=== PATIENT | female | born 1995 | race Two or more races ===

== ENCOUNTER 2024-12-07 17:08 | Inpatient (IN) | payer MEDICAID, SELFPAY ==
[2024-12-07 17:09] VITALS: BMI 32.5
[2024-12-07 17:44] VITALS: BP 120/70; PULSE 117; RESP 18; TEMP 36.9; O2SAT 98
--- NOTE | 2024-12-07 17:59 | XR_ITS ---
Examination: PA lateral chest 2 views Technique: Upright PA lateral chest 2 views Date and time: December 07, 2024, 1818 hrs. Indications: Vomiting chest pain beginning 2 days ago. Findings: Normal heart size. No aspiration pneumonia. Lungs are clear. Osseous structures are intact. Impression: No active disease.
--- NOTE | 2024-12-07 18:00 | PD.EDRME ---
Rapid Medical Screening Exam RME Arrival date/time: 12/07/24 17:08 29-year-old female insulin-dependent diabetic presents to the emergency department today for complaints of elevated blood sugar nausea and vomiting since yesterday Chief Complaint: Flu Like Symptoms Vital signs: Vital Signs Temperature 98.5 F 12/07/24 17:44 Pulse Rate 117 H 12/07/24 17:44 Respiratory Rate 18 12/07/24 17:44 Blood Pressure 120/70 12/07/24 17:44 Pulse Oximetry (%) 98 12/07/24 17:44 Oxygen Delivery Method Room Air 12/07/24 17:44
[2024-12-07 18:34] LABS: Collection Type, Urine Clean Catch
[2024-12-07 18:46] LABS: Bilirubin,Urine Negative (Negative); Blood,Urine 2+ (Negative); Clarity,Urine Clear (Clear/Hazy); Color,Urine Lt-Yellow (Lt Yel-Yel); Culture Indicated,Urine Not Indicated; Glucose, Urine 4+ (Negative); Hyaline Casts,Urine 1 /hpf (0-1); Ketones,Urine 4+ (Negative); Leukocyte Esterase,Urine Negative (Negative); Nitrite,Urine Negative (Negative); PH,Urine 5.5 (5.0-7.0); Protein,Urine 1+ (Neg - Trace); RBC,Urine 5 /hpf (0-3); Specific Gravity,Urine 1.020 (1.001-1.035); Squamous Epithelial Cell,Urine 1 /hpf (0-5); Urobilinogen,Urine Negative mg/dL (0.0-1.0); WBC,Urine 2 /hpf (0-5)
[2024-12-07 18:47] LABS: HCG Qualitative,Urine Negative
[2024-12-07 19:02] LABS: Base Excess, Venous -14 (-3-3); O2 Saturation, Venous 86 % (96-97); PCO2, Venous 28 mmHg (36-56); PO2, Venous 52 mmHg (15-58); pH, Venous 7.23 (7.33-7.66)
[2024-12-07 19:03] LABS: Basophils # (Auto) 0.1 Thou/mm3 (0.0-0.2); Basophils % (Auto) 0 % (0-2.5); Eosinophils # (Auto) 0.0 Thou/mm3 (0.0-0.5); Eosinophils % (Auto) 0 % (0-10); Hematocrit 46.5 % (36.0-46.0); Hemoglobin 14.9 g/dL (12.0-16.0); Immature Granulocytes Auto 0.19 Thou/mm3 (0.00-0.00); Lymphocytes # (Auto) 1.7 Thou/mm3 (1.0-4.8); Lymphocytes % (Auto) 7 % (10-50); Mean Corpuscular HGB Conc 32.0 g/dl (31.0-37.0); Mean Corpuscular Hemoglobin 31.7 pg (25.0-35.0); Mean Corpuscular Volume 99 fL (80-100); Monocytes # (Auto) 1.1 Thou/mm3 (0.0-0.8); Monocytes % (Auto) 4 % (0-12); Neutrophils # (Auto) 21.1 Thou/mm3 (1.8-7.7); Neutrophils % (Auto) 87 % (37-80); Nucleated Red Blood Cell # 0.00 Thou/mm3 (0.00-0.00); Nucleated Red Blood Cell % 0 /100 WBC (0); Platelet Count 309 Thou/mm3 (140-440); RDW Standard Deviation 44.8 fL (36.4-46.3); Red Blood Count 4.70 Miln/mm3 (4.00-5.20); White Blood Count 24.2 Thou/mm3 (3.6-11.0)
[2024-12-07 19:04] LABS: Glucose Estimated Average 143 mg/dL (80-131); Hemoglobin A1C 6.6 % Hgb (4.8-6.0)
[2024-12-07 19:05] LABS: Beta Hydroxybutyrate 2.9 mmol/L (<0.6)
[2024-12-07 19:14] LABS: Alanine Aminotransferase 19 U/L (10-49); Albumin, Serum 5.2 gm/dL (3.5-5.0); Albumin/Globulin Ratio 2.2 (1.2-2.2); Alkaline Phosphatase 137 U/L (46-116); Anion Gap 20 (7-16); Aspartate Amino Transferase 20 U/L (0-34); BUN/Creatinine Ratio 9 Ratio (12-20); Bilirubin,Total 0.4 mg/dL (0.3-1.2); Blood Urea Nitrogen 10 mg/dL (9-23); Calcium 10.5 mg/dL (8.3-10.6); Calcium (Corrected) 10.5 mg/dL (8.5-10.1); Chloride 105 mMol/L (98-107); Creatinine (Component) 1.1 mg/dL (0.6-1.3); Estimated Creatinine Clearance 64.1 mL/min (>60); Globulin 2.4 gm/dL (2.3-3.5); Glucose 234 mg/dL (74-106); Lipase 21 U/L (12-53); Osmolality,Calculated 282 (275-295); Potassium 4.4 mMol/L (3.4-5.1); Sodium 138 mMol/L (136-145); Total Protein 7.6 gm/dL (5.7-8.2); eGFR > 60 See Note
[2024-12-07 19:21] LABS: Carbon Dioxide 13.1 mMol/L (20.0-31.0)
--- NOTE | 2024-12-07 19:36 | EDNOTE_ITS ---
Upper Respiratory Inf. RME/HPI General Chief Complaint: Flu Like Symptoms Stated Complaint: VOMITING/FATIGUE/FREQ BM x 2 DAYS Time Seen by Provider: 12/07/24 19:34 Arrival date/time: 12/07/24 17:08 RME / HPI RME / HPI Narrative: 12/07/24 17:08 29-year-old female insulin-dependent diabetic presents to the emergency department today for complaints of elevated blood sugar nausea and vomiting since yesterday ----- See [facility] for Dr. Ortega's HPI documentation. Related Data Home Medications ?Medication ?Instructions ?Recorded ?Confirmed apremilast 30 mg tablet (Otezla) 30 mg PO PRN PRN jeaneth kout 12/08/24 12/08/24 blood-glucose sensor (Dexcom G6 12/08/24 12/08/24 Sensor device) blood-glucose transmitter (Dexcom 12/08/24 12/08/24 G6 Transmitter device) insulin glargine 100 unit/mL (3 13 unit subcut DAILY 0 12/08/24 12/08/24 mL) subcutaneous pen (Basaglar KwikPen U-100 Insulin) insulin lispro 100 unit/mL 1 sliding scale dose subcut AC 12/08/24 12/08/24 subcutaneous pen (Admelog SoloStar U-100 Insulin lispro) insulin pump cart,auto,BT,G6/7 12/08/24 12/08/24 (Omnipod 5 G6-G7 Pods (Gen 5) subcutaneous cartridge) levothyroxine 150 mcg tablet 150 mcg PO DAILY 12/08/24 12/08/24 norgestimate 0.25 mg-ethinyl 1 tab PO DAILY 12/08/24 0 12/08/24 estradiol 0.035 mg tablet (Radha) Allergies Allergy/AdvReac Type Severity Reaction Status Date / Time No Known Allergies Allergy Verified 12/07/24 17:11 Review of Systems Review of Systems Systems Reviewed: All systems reviewed, normal except as documented Past Medical History Past Medical History CARDIAC: Negative Cardiac Disorders or Congestive Heart Failure RESPIRATORY: Negative Chronic Obstructive Pulmonary Disease (COPD) or Asthma GENITOURINARY: Negative Renal Disease ENDOCRINE: Positive Diabetes Mellitus Type 2; Negative Diabetes Mellitus Type 1 HEMATOLOGIC: Negative Sickle Cell Disease Social History SMOKING STATUS: Never smoker ED Exam Narrative Physical exam: See [facility] for Dr. Ortega's physical exam documentation. Course Quality Measures none Orders Category Date Time Status Bedside COVID-19 Antigen Test NOW Care 12/07/24 17:59 Completed Bedside Influenza A&B Antigen Test NOW Care 12/07/24 17:59 Completed Saline [Insert IV] NOW Care 12/07/24 19:35 Completed XR chest 2V Stat Exams 12/07/24 17:59 Completed A1C [Glycohemoglobin w (eAG)] Stat Lab 12/07/24 18:30 Completed Amylase Stat Lab 12/07/24 18:30 Completed Beta Hydroxybutyrate Stat Lab 12/07/24 18:30 Completed CBC Stat Lab 12/07/24 18:30 Completed Comprehensive Metabolic Panel Stat Lab 12/07/24 18:30 Completed HCG Qualitative,Urine Stat Lab 12/07/24 18:21 Completed Lipase Stat Lab 12/07/24 18:30 Completed UA, C/S IF [Urinalysis, C/S if Indicated] Stat Lab 12/07/24 18:21 Completed VBG [Venous Blood Gas] Stat Lab 12/07/24 18:30 Completed Insulin Reg 100 Units/100 ml [Myxredlin] Med 12/07/24 19:36 Discontinued 100 unit in 100 ml IV 0.1 unit/kg/hr Ondansetron Inj [Zofran Inj] Med 12/07/24 19:35 Discontinued 4 mg IVP X1 ONE Sodium Chloride 0.9% 1000 ml [Ns] 1,000 ml Med 12/07/24 19:35 Discontinued IV 999 mls/hr Vital Signs Vital signs: Vital Signs Temperature 98.5 F 12/07/24 17:44 Pulse Rate 117 H 12/07/24 17:44 Respiratory Rate 18 12/07/24 17:44 Blood Pressure 120/70 12/07/24 17:44 Pulse Oximetry (%) 98 12/07/24 17:44 Oxygen Delivery Method Room Air 12/07/24 17:44 Upper Respiratory Infection MDM Narrative MDM Narrative:: This section includes all my notes and documentations, including HPI, PE, and ED course. Devaughn Ortega MD HPI: 29yo female with DM here with nausea, vomiting, and elevated blood sugar for about 24 hours. And fatigue and malaise and abdominal discomfort. No other complaints reported. ROS: All negative except as documented in HPI. Physical Exam: General: Alert and oriented. Appearance of malaise noted. Eyes: Conjunctivae and lids clear. ENT: No nasal congestion. Neck: Supple. Heart: RRR. Lungs: No respiratory distress. Good air movement. No rhonchi, wheezing, rales. Abdomen: Soft and nontender. Normal bowel sounds. No distension. No rebound or guarding. Skin: Warm and dry. Neuro: Alert and oriented X 3. I reviewed all diagnostic test results. My interpretation of the chest x-ray is NAD. Blood tests remarkable for WBC 24.2, Carbon Dioxide 13.1, Anion Gap 20, Glucose 234, Beta Hydroxybutyrate 2.9. VCG remarkable for pH 7.23, pCO2 28. UA remarkable for 4+ glucose and 4+ ketones. At this point, diagnoses include: DKA Treatment here included: IV fluid Zofran Insulin drip I discussed the case with our ICU team. About the presentation and exam and diagnostics and treatments here. And need of further care in the hospital. Will accept the patient. Devaughn Ortega MD Patient data External records reviewed:: [facility] previous records (Per chart review, patient has no relevant previous ED visits.) Clinical information provided by:: patient Social determinants that could affect healthcare access:: none Patient has the following chronic illnesses:: DM How is presenting disease/condition affected by chronic disease/condition?: exacerbated by Evaluation data The following diagnostics were reviewed and interpreted by me:: lab results and radiology exam(s) Lab and/or radiology exams considered but not ordered:: none Interpretation Summary: I reviewed all diagnostic test results. My interpretation of the chest x-ray is NAD. Blood tests remarkable for WBC 24.2, Carbon Dioxide 13.1, Anion Gap 20, Glucose 234, Beta Hydroxybutyrate 2.9. VCG remarkable for pH 7.23, pCO2 28. UA remarkable for 4+ glucose and 4+ ketones. Medications / Prescriptions Medications or Prescriptions considered but not ordered:: none Medication administrations:: Medication Administration History Discontinued Medications Acetaminophen (Acetaminophen 325 Mg Tablet) 650 mg PO Q6H PRN PRN Reason: Fever >101.5 Stop: 01/06/25 20:45 Dextrose (Dextrose 50%-Water Inj 50 Ml Syringe) 25 ml IV PRNMRX1 PRN PRN Reason: Blood Sugar - Low Dextrose (Dextrose 50%-Water Inj 50 Ml Syringe) 25 ml IV Q15MIN PRN PRN Reason: BG 50-70 responsive npo pt Stop: 01/07/25 05:59 Dextrose (Dextrose 50%-Water Inj 50 Ml Syringe) 50 ml IV Q15MIN PRN PRN Reason: BG <50 OR BG <70 & pt unresponsive Stop: 01/07/25 05:59 Glucagon (Glucagon Inj 1 Mg Vial) 1 mg IM Q15MIN PRN PRN Reason: BG <70, and no IV access Heparin Sodium (Porcine) (Heparin Sod Inj 5000 Unit/Ml Vial) 5,000 unit SC Q8HR BASSAM Stop: 12/21/24 21:59 Last Admin: 12/09/24 05:31 Dose: 5,000 unit Documented By: YUE Co-signed By: Admin: 12/08/24 21:18 Dose: 5,000 unit Documented By: YUE Co-signed By: Admin: 12/08/24 14:21 Dose: 5,000 unit Documented By: EMERY Co-signed By: sharon Admin: 12/08/24 05:15 Dose: 5,000 unit Documented By: OZZIE Co-signed By: MAE Admin: 12/07/24 22:35 Dose: 5,000 unit Documented By: AKILA Co-signed By: TOMAS Sodium Chloride (Ns) 1,000 mls @ 999 mls/hr IV .Q1H1M ONE Stop: 12/07/24 20:35 Last Infusion: 12/07/24 22:40 Dose: Infused Documented By: Admin: 12/07/24 20:53 Dose: 999 mls/hr Documented By: TOMAS Insulin Human Regular (Myxredlin) 100 unit in 100 mls @ 7.076 mls/hr IV .Q14H8M PRN; Protocol PRN Reason: PER PROTOCOL Stop: 01/06/25 19:35 Last Titration: 12/08/24 08:15 Dose: 0 unit/kg/hr, 0 mls/hr Documented By: sharon Co-signed By: EMERY Titration: 12/08/24 07:00 Dose: 0.025 unit/kg/hr, 1.769 mls/hr Documented By: OZZIE Co-signed By: sharon Titration: 12/08/24 06:00 Dose: 0.05 unit/kg/hr, 3.538 mls/hr Documented By: OZZIE Co-signed By: MAE Titration: 12/08/24 05:00 Dose: 0 unit/kg/hr, 0.05 mls/hr Documented By: RICHARD Co-signed By: MAE Titration: 12/08/24 04:03 Dose: 0.025 unit/kg/hr, 1.769 mls/hr Documented By: RAMA Co-signed By: RICHRAD Titration: 12/08/24 02:00 Dose: 0.05 unit/kg/hr, 3.538 mls/hr Documented By: AD Co-signed By: VR Titration: 12/08/24 01:00 Dose: 0.1 unit/kg/hr, 7.076 mls/hr Documented By: RICHARD Co-signed By: RAMA Titration: 12/08/24 00:00 Dose: 0.1 unit/kg/hr, 7.076 mls/hr Documented By: AD Co-signed By: VR Admin: 12/07/24 23:33 Dose: 0.05 unit/kg/hr, 3.538 mls/hr Documented By: RICHARD Co-signed By: OZZIE Insulin Human Regular 100 unit (/ IV Miscellaneous Supplies) 100 mls @ 7.076 mls/hr IV .Q14H8M PRN; Protocol PRN Reason: PER PROTOCOL Stop: 01/06/25 20:48 Potassium Chloride 40 meq/ (Lactated Ringer's) 1,020 mls @ 250 mls/hr IV .Q4H5M PRN PRN Reason: K LEVEL < 3.3 mM/L Stop: 01/06/25 20:48 Potassium Chloride (Kcl Ivpb) 10 meq in 100 mls @ 50 mls/hr IV PRN PRN PRN Reason: K LEVEL 3.3 to 5.3 & BG > 200 Stop: 01/06/25 20:48 Last Admin: 12/08/24 05:48 Dose: 50 mls/hr Documented By: Infusion: 12/08/24 05:28 Dose: Infused Documented By: Admin: 12/08/24 03:28 Dose: 50 mls/hr Documented By: Infusion: 12/08/24 03:24 Dose: Infused Documented By: Admin: 12/08/24 01:24 Dose: 50 mls/hr Documented By: Infusion: 12/08/24 01:24 Dose: Infused Documented By: Admin: 12/07/24 23:33 Dose: 50 mls/hr Documented By: AD Sodium Phosphate 15 mmol/ (Sodium Chloride) 255 mls @ 62.5 mls/hr IV .Q4H5M PRN PRN Reason: Phosphate <= 1mg/dL and K> than 5.3 Stop: 01/06/25 20:48 Magnesium Sulfate (Magnesium Sulfate Ivpb) 2 gm in 50 mls @ 25 mls/hr IV .Q2H PRN PRN Reason: PER DKA PROTOCOL Stop: 01/06/25 20:48 Last Admin: 12/08/24 04:57 Dose: 25 mls/hr Documented By: AD Dextrose/Lactated Ringer's (D5-Lr) 1,000 mls @ 250 mls/hr IV .Q4H PRN PRN Reason: PER PROTOCOL Stop: 01/06/25 20:48 Last Admin: 12/08/24 04:20 Dose: 250 mls/hr Documented By: Infusion: 12/08/24 04:20 Dose: Infused Documented By: Infusion: 12/08/24 02:00 Dose: 250 mls/hr Documented By: Infusion: 12/08/24 01:00 Dose: 0 mls/hr Documented By: Admin: 12/07/24 23:34 Dose: 250 mls/hr Documented By: AD Lactated Ringer's (Lactated Ringers) 1,000 mls @ 250 mls/hr IV .Q4H PRN PRN Reason: PER PROTOCOL Stop: 12/08/24 20:48 Last Infusion: 12/08/24 02:00 Dose: 0 mls/hr Documented By: Admin: 12/08/24 01:05 Dose: 250 mls/hr Documented By: AD Potassium Chloride 40 meq/ (Lactated Ringer's) 1,020 mls @ 250 mls/hr IV .Q4H5M PRN PRN Reason: K LEVEL < 3.3 mM/L Stop: 01/06/25 20:48 Potassium Chloride 40 meq/ (Dextrose/Lactated Ringer's) 1,020 mls @ 250 mls/hr IV .Q4H5M PRN PRN Reason: K LEVEL < 3.3mM/L Stop: 01/06/25 20:48 Potassium Cl/Dextrose/Lact Ringer's (Kcl 20 Meq/L In D5-Lr) 20 meq in 1,000 mls @ 250 mls/hr IV .Q4H PRN PRN Reason: K LEVEL 3.3 TO 5.3 mM/L Potassium Chloride (Kcl Ivpb) 10 meq in 100 mls @ 50 mls/hr IV PRN PRN PRN Reason: K LEVEL 3.3 to 5.3 & BG > 200 Stop: 01/06/25 20:48 Potassium Phosphate (Pot Phos 15 Mmol In Ns 250 Ml) 15 mmol in 250 mls @ 62.5 mls/hr IV PRN PRN PRN Reason: Phosphate <= 1mg/dL Stop: 01/06/25 20:48 Sodium Phosphate 15 mmol/ (Sodium Chloride) 255 mls @ 62.5 mls/hr IV .Q4H5M PRN PRN Reason: Phosphate <= 1mg/dL and K> than 5.3 Stop: 01/06/25 20:48 Lactated Ringer's (Lactated Ringers) 1,000 mls @ 999 mls/hr IV .Q1H1M ONE Stop: 12/08/24 08:30 Last Admin: 12/08/24 08:36 Dose: 999 mls/hr Documented By: LW Insulin Degludec (Insulin Degludec 5 Unit/0.05 Ml (Per 5 Units)) 10 unit SC QDAY BASSAM Stop: 01/07/25 08:59 Insulin Degludec (Insulin Degludec 5 Unit/0.05 Ml (Per 5 Units)) 10 unit SC QDAY BASSAM Stop: 01/07/25 05:59 Last Admin: 12/08/24 06:17 Dose: 10 unit Documented By: GG Co-signed By: AD Insulin Degludec (Insulin Degludec 5 Unit/0.05 Ml (Per 5 Units)) 5 unit SC X1 ONE Stop: 12/08/24 21:01 Last Admin: 12/08/24 21:17 Dose: 5 unit Documented By: G Co-signed By: SA Insulin Degludec (Insulin Degludec 5 Unit/0.05 Ml (Per 5 Units)) 15 unit SC HS [facility] Stop: 01/08/25 20:59 Insulin Human Lispro (Insulin Lispro (Admelog) 1 Unit/0.01 Ml Unit) 2 unit SC AC [facility] Stop: 01/07/25 07:29 Last Admin: 12/08/24 11:55 Dose: 2 unit Documented By: sharon Co-signed By: PHOENIX Admin: 12/08/24 08:32 Dose: 2 unit Documented By: EMERY Co-signed By: PHOENIX Insulin Human Lispro (Insulin Lispro (Admelog) 1 Unit/0.01 Ml Unit) 0 unit SC AC [facility]; Protocol Stop: 01/07/25 07:29 Last Admin: 12/09/24 07:45 Dose: 2 unit Documented By: SHIRA Co-signed By: TEJ Admin: 12/08/24 17:05 Dose: 4 unit Documented By: ian Co-signed By: CAMILLA Admin: 12/08/24 11:56 Dose: 1 unit Documented By: sharon Co-signed By: PHOENIX Admin: 12/08/24 08:31 Dose: 1 unit Documented By: EMERY Co-signed By: PHOENIX Insulin Human Lispro (Insulin Lispro (Admelog) 1 Unit/0.01 Ml Unit) 3 unit SC TIDWM [facility] Stop: 01/07/25 17:29 Last Admin: 12/09/24 07:45 Dose: 3 unit Documented By: SHIRA Co-signed By: TEJ Admin: 12/08/24 17:06 Dose: 3 unit Documented By: ian Co-signed By: CAMILLA Insulin Human Lispro (Insulin Lispro (Admelog) 1 Unit/0.01 Ml Unit) 5 unit SC TIDWM [facility] Stop: 01/08/25 11:59 Last Admin: 12/09/24 11:29 Dose: 5 unit Documented By: SHIRA Co-signed By: GAGAN Insulin Human Lispro (Insulin Lispro (Admelog) 1 Unit/0.01 Ml Unit) 0 unit SC [facility]; Protocol Stop: 01/07/25 07:29 Last Admin: 12/09/24 11:30 Dose: 4 unit Documented By: SHIRA Co-signed By: GAGAN Levothyroxine Sodium (Levothyroxine Sodium 125 Mcg Tablet) [facility] Stop: 01/08/25 05:59 Levothyroxine Sodium 125 mcg/ (Levothyroxine Sodium 25 mcg) 150 mcg PO ACBR [facility] Stop: 01/08/25 05:59 Levothyroxine Sodium 125 mcg/ (Levothyroxine Sodium 25 mcg) 150 mcg PO ACBR [facility] Stop: 01/07/25 08:14 Last Admin: 12/09/24 05:30 Dose: 150 mcg Documented By: Admin: 12/08/24 08:36 Dose: 150 mcg Documented By: EMERY Ondansetron HCl (Ondansetron Inj 2 Mg/Ml Inj 2 Ml) 4 mg IVP X1 ONE; Protocol Stop: 12/07/24 19:36 Last Admin: 12/07/24 20:53 Dose: 4 mg Documented By: TOMAS Ondansetron HCl (Ondansetron Inj 2 Mg/Ml Inj 2 Ml) 4 mg IVP Q6H PRN; Protocol PRN Reason: NAUSEA OR VOMITING Stop: 01/06/25 20:45 Pantoprazole Sodium (Pantoprazole 40 Mg Tablet) 40 mg PO QDAY BASSAM Stop: 01/07/25 08:59 Last Admin: 12/09/24 08:55 Dose: 40 mg Documented By: Admin: 12/08/24 08:35 Dose: 40 mg Documented By: EMERY Sodium Bicarbonate (Sodium Bicarb Inj 8.4% Syr 50 Ml Syringe) 50 ml IV Q4HR PRN PRN Reason: For ph <= to 7.0 Stop: 01/06/25 20:48 From me, patient received IV fluid, Zofran, Insulin drip. Consultations Consultation(s) initiated? (list below): Yes Consultation #1 (Physician, Specialty, Details): I discussed the case with our ICU team. About the presentation and exam and diagnostics and treatments here. And need of further care in the hospital. Will accept the patient. Diagnosis Upper Respiratory Differential Diagnosis: other (DKA, Dehydration, UTI, Sepsis, Influenza, Covid) Most likely diagnosis given after review of the tests above:: DKA Admission Indicated Admission indicated?: indicated Explain why admission is indicated or not indicated:: DKA Admission Request Was there a request for admission?: Yes Admission Attestation Admission request attestation: Discussed case with our ICU service regarding admission. Discussed patients ED course, exam findings, labs, and radiology results. Agreed to accept the patient for admission. Disposition Plan Disposition Plan: Admit Critical Care Time Critical Care Time Critical Care Time: Yes Total Critical Care Time (min.): 45 Attestation: Due to a high probability of clinically significant, life threatening deterioration, the patient required my highest level of preparedness to intervene emergently and I personally spent this critical care time directly and personally managing the patient. This critical care time included obtaining a history; examining the patient; ordering and review of studies; arranging urgent treatment with development of a management plan; evaluation of patient's response to treatment; frequent reassessment; and discussions with family and other providers. It was exclusive of separately billable procedures and treating other patients and teaching time. Devaughn Ortega MD Discharge Plan Plan Patient Disposition: Admit Acute Care w/in Hospital Problem List Clinical Impression: DKA (diabetic ketoacidosis)
[2024-12-07 20:32] LABS: Amylase 25 U/L (30-118)
--- NOTE | 2024-12-07 20:49 | XR_ITS ---
Examination: AP chest single view Technique: AP upright portable chest single view Indications: Chest pain today. Comparison: 12/07/2024 Findings: Normal heart size. Lungs are clear. The osseous structures are intact Impression: No active disease
[2024-12-07] MEDS: SODIUM CHLORIDE 0.9% 1000 ML 1,000 ML 999 ML IV (20:53)
[2024-12-07] MEDS: ONDANSETRON INJ 2 MG/ML INJ 2 ML 4 MG IVP (20:53)
[2024-12-07 20:55] VITALS: BP 132/89; PULSE 110; PULSE 111; PULSE 113; RESP 100; RESP 22; O2SAT 100
[2024-12-07 21:27] LABS: Base Excess -13 (-3-3); HCO3 13 mEq/L (20-26); Inspired Oxygen, FIO2 21 %; O2 Saturation 98 % (91-98); PCO2 29 mmHg (32.0-48.0); PO2 98 mmHg (83-108); pH, Arterial 7.25 (7.35-7.45)
[2024-12-07 21:30] LABS: Basophils # (Auto) 0.1 Thou/mm3 (0.0-0.2); Basophils % (Auto) 0 % (0-2.5); Eosinophils # (Auto) 0.0 Thou/mm3 (0.0-0.5); Eosinophils % (Auto) 0 % (0-10); Hematocrit 43.7 % (36.0-46.0); Hemoglobin 14.7 g/dL (12.0-16.0); Immature Granulocytes Auto 0.19 Thou/mm3 (0.00-0.00); Lymphocytes # (Auto) 2.5 Thou/mm3 (1.0-4.8); Lymphocytes % (Auto) 11 % (10-50); Mean Corpuscular HGB Conc 33.6 g/dl (31.0-37.0); Mean Corpuscular Hemoglobin 32.5 pg (25.0-35.0); Mean Corpuscular Volume 97 fL (80-100); Monocytes # (Auto) 1.2 Thou/mm3 (0.0-0.8); Monocytes % (Auto) 5 % (0-12); Neutrophils # (Auto) 18.6 Thou/mm3 (1.8-7.7); Neutrophils % (Auto) 83 % (37-80); Nucleated Red Blood Cell # 0.00 Thou/mm3 (0.00-0.00); Nucleated Red Blood Cell % 0 /100 WBC (0); Platelet Count 285 Thou/mm3 (140-440); RDW Standard Deviation 43.9 fL (36.4-46.3); Red Blood Count 4.53 Miln/mm3 (4.00-5.20); White Blood Count 22.5 Thou/mm3 (3.6-11.0)
[2024-12-07 21:33] LABS: Allen Test Performed/OK; Puncture Site Right Radial
[2024-12-07 21:36] LABS: Beta Hydroxybutyrate 4.6 mmol/L (<0.6)
--- NOTE | 2024-12-07 21:38 | PD.RESHP ---
Documentation for date of: 12/07/24 [facility] History of Present Illness History of present illness: Patient is a 29-year-old female with past medical history of insulin-dependent diabetes mellitus presented to emergency department with chief complaints of nausea, vomiting, abdominal pain, and generalized weakness. Patient stated that she was diagnosed with diabetes in 2020, and for the last 1 year she was on insulin pump, followed by endocrinology in [place]. Patient states that she is not very much compliant with insulin pump as her skin gets irritated. Patient the not the best historian, she is not sure how much insulin she is taking at home, however stated that she has long-acting insulin and would use it whenever she is not using her insulin pump. She stated that she missed her insulin dose, and since yesterday were having diarrhea, nausea and vomiting. Otherwise patient denied any dysuria, chest pain, palpitation, any other associated symptoms. On presentation patient was hemodynamically stable, vitals revealed mild tachycardia with heart rate of 117, CMP showed leukocytosis with left shift, WBC of 24.2, chemistry panel revealed bicarb of 32.1, anion gap of 20, glucose of 234,beta-hydroxybutyrate 0.9. A1c 6.6, corrected calcium of 10.5, ALP 137, albumin 5.2, VBG showed pH of 7.23, pCO2 28, O2 52, ICU team was contacted and patient was admitted to ICU for DKA treatment and management. PMH as above PSH none Allergies NKDA Medications Pump and insulin pump Social history patient denies smoking, drinking or recreational drug use. Review of Systems Review of Systems Systems Reviewed: All systems reviewed, normal except as documented Exam Vital Signs Temp Pulse Resp BP Pulse Ox O2 Del Method 98.5 F 110 H 22 H 132/89 H 100 Room Air 12/07/24 17:44 12/07/24 20:55 12/07/24 20:55 12/07/24 20:55 12/07/24 20:55 12/07/24 20:55 Narrative Exam GENERAL: no acute distress, AAO x3, well nourished. HEENT: Head AT/ NC. Mucous membranes dry. PERRL. NECK: Supple, no lymphadenopathy, no carotid bruits. CARDIOVASCULAR: RRR. Normal S1/S2, No m/r/g. No pitting edema of bilateral LEs. RESPIRATORY: CTAB. No wheezing, rhonchi, crackles. GASTROINTESTINAL: Abdomen soft, non tender no palpable masses. Bowel sounds present in all 4 quadrants. MUSCULOSKELETAL:? No cyanosis or edema, no visible joint swelling. NEUROLOGICAL: CN II-XII grossly intact. No focal deficits. Sensation intact, symmetric. PSYCHIATRIC: Awake and alert, not agitated, normal mood and affect. INTEGUMENTARY: No obvious rashes, no jaundice, normal turgor. Results: Labs 12/07/24 20:58 12/07/24 20:58 Labs: Short CBC 12/07/24 12/07/24 Range/Units 18:30 20:58 WBC 24.2 H 22.5 H (3.6-11.0) Thou/mm3 Hgb 14.9 14.7 (12.0-16.0) g/dL Hct 46.5 H 43.7 (36.0-46.0) % Plt Count 309 285 (140-440) Thou/mm3 BMP 12/07/24 18:30 Sodium 138 Potassium 4.4 Chloride 105 Carbon Dioxide 13.1 L* BUN 10 Creatinine 1.1 Glucose 234 H Calcium 10.5 Liver Function 12/07/24 Range/Units 18:30 Total Bilirubin 0.4 (0.3-1.2) mg/dL AST 20 (0-34) U/L ALT 19 (10-49) U/L Alkaline Phosphatase 137 H (46-116) U/L Albumin 5.2 H (3.5-5.0) gm/dL Urine 12/07/24 Range/Units 18:21 Urine Color Lt-Yellow (Lt Yel-Yel) Urine Clarity Clear (Clear/Hazy) Urine pH 5.5 (5.0-7.0) Ur Specific [place] 1.020 (1.001-1.035) Urine Protein 1+ A (Neg - Trace) Urine Glucose (UA) 4+ A (Negative) ABG Interpretation ABG results: 12/07/24 12/07/24 18:30 21:16 ABG pH 7.25 L ABG pCO2 29 L ABG pO2 98 ABG HCO3 13 L ABG O2 Saturation 98 ABG Base Excess -13 L VBG pH 7.23 L VBG pCO2 28 L VBG pO2 52 VBG Base Excess -14 L Quality Measures Quality Measures none Medications Home Medications and Allergies Home Medications ?Medication ?Instructions ?Recorded ?Confirmed ?Type Ethinyl Estradiol/Norgestimate * 1 tab PO QDAY #0 tabs 04/28/14 07/25/17 History (ORTHO TRICYCLEN *) Levothyroxine * (SYNTHROID *) 88 mcg PO QDAY #0 tabs 04/28/14 06/28/18 History Allergies Allergy/AdvReac Type Severity Reaction Status Date / Time No Known Allergies Allergy Verified 12/07/24 17:11 Visit Medications Acetaminophen (Acetaminophen 325 Mg Tablet) 650 mg PO Q6H PRN PRN Reason: Fever >101.5 Stop: 01/06/25 20:45 Dextrose (Dextrose 50%-Water Inj 50 Ml Syringe) 25 ml IV [id number] PRN PRN Reason: Blood Sugar - Low Heparin Sodium (Porcine) (Heparin Sod Inj 5000 Unit/Ml Vial) 5,000 unit SC Q8HR BASSAM Stop: 12/21/24 21:59 Insulin Human Regular (Myxredlin) 100 unit in 100 mls @ 7.076 mls/hr IV .Q14H8M PRN; Protocol PRN Reason: PER PROTOCOL Stop: 01/06/25 19:35 Insulin Human Regular 100 unit (/ IV Miscellaneous Supplies) 100 mls @ 7.076 mls/hr IV .Q14H8M PRN; Protocol PRN Reason: PER PROTOCOL Stop: 01/06/25 20:48 Potassium Chloride 40 meq/ (Lactated Ringer's) 1,020 mls @ 250 mls/hr IV .Q4H5M PRN PRN Reason: K LEVEL < 3.3 mM/L Stop: 01/06/25 20:48 Potassium Chloride (Kcl Ivpb) 10 meq in 100 mls @ 50 mls/hr IV PRN PRN PRN Reason: K LEVEL 3.3 to 5.3 & BG > 200 Stop: 01/06/25 20:48 Sodium Phosphate 15 mmol/ (Sodium Chloride) 255 mls @ 62.5 mls/hr IV .Q4H5M PRN PRN Reason: Phosphate <= 1mg/dL and K> than 5.3 Stop: 01/06/25 20:48 Magnesium Sulfate (Magnesium Sulfate Ivpb) 2 gm in 50 mls @ 25 mls/hr IV .Q2H PRN PRN Reason: PER DKA PROTOCOL Stop: 01/06/25 20:48 Dextrose/Lactated Ringer's (D5-Lr) 1,000 mls @ 250 mls/hr IV .Q4H PRN PRN Reason: PER PROTOCOL Stop: 01/06/25 20:48 Lactated Ringer's (Lactated Ringers) 1,000 mls @ 250 mls/hr IV .Q4H PRN PRN Reason: PER PROTOCOL Stop: 12/08/24 20:48 Potassium Chloride 40 meq/ (Lactated Ringer's) 1,020 mls @ 250 mls/hr IV .Q4H5M PRN PRN Reason: K LEVEL < 3.3 mM/L Stop: 01/06/25 20:48 Potassium Chloride 40 meq/ (Dextrose/Lactated Ringer's) 1,020 mls @ 250 mls/hr IV .Q4H5M PRN PRN Reason: K LEVEL < 3.3mM/L Stop: 01/06/25 20:48 Potassium Cl/Dextrose/Lact Ringer's (Kcl 20 Meq/L In D5-Lr) 20 meq in 1,000 mls @ 250 mls/hr IV .Q4H PRN PRN Reason: K LEVEL 3.3 TO 5.3 mM/L Potassium Chloride (Kcl Ivpb) 10 meq in 100 mls @ 50 mls/hr IV PRN PRN PRN Reason: K LEVEL 3.3 to 5.3 & BG > 200 Stop: 01/06/25 20:48 Potassium Phosphate (Pot Phos 15 Mmol In Ns 250 Ml) 15 mmol in 250 mls @ 62.5 mls/hr IV PRN PRN PRN Reason: Phosphate <= 1mg/dL Stop: 01/06/25 20:48 Sodium Phosphate 15 mmol/ (Sodium Chloride) 255 mls @ 62.5 mls/hr IV .Q4H5M PRN PRN Reason: Phosphate <= 1mg/dL and K> than 5.3 Stop: 01/06/25 20:48 Ondansetron HCl (Ondansetron Inj 2 Mg/Ml Inj 2 Ml) 4 mg IVP Q6H PRN; Protocol PRN Reason: NAUSEA OR VOMITING Stop: 01/06/25 20:45 Pantoprazole Sodium (Pantoprazole 40 Mg Tablet) 40 mg PO QDAY BASSAM Stop: 01/07/25 08:59 Sodium Bicarbonate (Sodium Bicarb Inj 8.4% Syr 50 Ml Syringe) 50 ml IV Q4HR PRN PRN Reason: For ph <= to 7.0 Stop: 01/06/25 20:48 Discontinued Medications Sodium Chloride (Ns) 1,000 mls @ 999 mls/hr IV .Q1H1M ONE Stop: 12/07/24 20:35 Last Admin: 12/07/24 20:53 Dose: 999 mls/hr Ondansetron HCl (Ondansetron Inj 2 Mg/Ml Inj 2 Ml) 4 mg IVP X1 ONE; Protocol Stop: 12/07/24 19:36 Last Admin: 12/07/24 20:53 Dose: 4 mg Assessment & Plan Plan Patient is a 29-year-old female with past medical history of insulin-dependent diabetes mellitus on insulin pump 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 Respiratory No active disease Patient is saturating on room air CVS Tachycardia 2/2 dehydration in setting of DKA GI #Nausea, vomiting secondary to DKA #Abdominal pain secondary to DKA #Diarrhea resolved -Symptomatic management as needed Renal #AGMA Secondary due to DKA Anion gap of 20, VBG revealed pH of 7.23, beta hydroxybutyrate elevated - Treat underlying condition - Strict CARMITA's - Renal panel every 4 hour per DKA protocol Endo #DKA secondary to medication noncompliance #DM type I Patient presents with chief complaints of nausea, vomiting, diarrhea and generalized weakness Patient states that yesterday her blood sugar was around 500 On presentation beta-hydroxybutyrate was elevated, anion gap of 20, -Was admitted to ICU for close monitoring -Started on DKA protocol -Close monitor glucose/renal panel -Closing anion gap x 2 before starting diet, plans to transition to subcu insulin according requirement -Pain/nausea management as needed ID No active disease Hematology #Leukocytosis most likely reactive Disposition:ICU DVT prophylaxis: heparin GI prophylaxis: PPI Diet: NPO Lines: PIV CODE STATUS:Full code Patient care was discussed with attending physician Dr. Abebe Cox MD PGY-3 I have carefully reviewed this document. Due to imperfections in the voice software, there could be grammatical errors including phonetic/typographic errors. This in no way compromises the medical care the patient is receiving Attending Provider Attestation/Addendum After examination of the patient and review of the clinical data I feel that this patient needs admission to the hospital for further treatment/evaluation. TOTAL CC TIME: 45 MIN TOTAL TIME: 45 Minutes of direct medical management and planning of care. I Debora Lomas MD, attest that I was physically present for lambert portions of evaluation, and examined patient, labs and imagings and plan of care were discussed with IM residents team, and I agree with the findings and plans documented above.
[2024-12-07 21:49] LABS: Anion Gap 20 (7-16); BUN/Creatinine Ratio 18 Ratio (12-20); Blood Urea Nitrogen 16 mg/dL (9-23); Calcium 10.1 mg/dL (8.3-10.6); Carbon Dioxide 15.0 mMol/L (20.0-31.0); Chloride 103 mMol/L (98-107); Creatinine (Component) 0.9 mg/dL (0.6-1.3); Estimated Creatinine Clearance 78.3 mL/min (>60); Glucose 205 mg/dL (74-106); Magnesium 1.8 mg/dL (1.6-2.6); Osmolality,Calculated 282 (275-295); Phosphorous 3.3 mg/dL (2.4-5.1); Potassium 4.7 mMol/L (3.4-5.1); Sodium 138 mMol/L (136-145); eGFR > 60 See Note
[2024-12-07 22:05] VITALS: BP 135/85; PULSE 114; RESP 20; TEMP 36.9; O2SAT 100
[2024-12-07 22:26] LABS: Free T4 (Free Thyroxine) 1.63 ng/dL (0.89-1.76)
[2024-12-07] MEDS: HEPARIN SOD INJ 5000 UNIT/ML VIAL SC (22:35)
[2024-12-07 22:49] LABS: Glucose Estimated Average 143 mg/dL (80-131); Hemoglobin A1C 6.6 % Hgb (4.8-6.0)
[2024-12-07 23:05] VITALS: O2SAT 99
[2024-12-07 23:20] VITALS: BP 128/85
[2024-12-07] MEDS: POTASSIUM CHL 10 mEq IVPB 10 MEQ/100 ML BAG 50 MEQ IV (23:33)
[2024-12-07] MEDS: INSULIN REG 100 UNITS/100 ML 100 UNIT/100 ML BAG IV (23:33)
[2024-12-07] MEDS: DEXTROSE 5%-LACTATED RINGERS 1,000 ML 250 ML IV (23:34)
[2024-12-08] VITALS (22 sets, daily range): BP systolic 103–147; BP diastolic 63–100; PULSE 87–123; RESP 13–100; TEMP 36.1–37.1; O2SAT 96–100; BMI 32.8
[2024-12-08 00:02] LABS: Lactate (Lactic Acid) 2.3 mMol/L (0.4-2.0)
[2024-12-08 00:21] LABS: Reflex Lactate? Y
[2024-12-08] MEDS: RINGERS LACTATED 1000 ML 1,000 ML 250 ML IV (01:05)
[2024-12-08] MEDS: POTASSIUM CHL 10 mEq IVPB 10 MEQ/100 ML BAG 50 MEQ IV ×3 (01:24→05:48)
[2024-12-08 02:10] LABS: Base Excess, Venous -7 (-3-3); Lactate (Lactic Acid) 2.2 mMol/L (0.4-2.0); O2 Saturation, Venous 95 % (96-97); PCO2, Venous 33 mmHg (36-56); PO2, Venous 65 mmHg (15-58); pH, Venous 7.35 (7.33-7.66)
[2024-12-08 03:03] LABS: Albumin, Serum 4.5 gm/dL (3.5-5.0); Anion Gap 13 (7-16); BUN/Creatinine Ratio 10 Ratio (12-20); Blood Urea Nitrogen 7 mg/dL (9-23); Calcium 9.7 mg/dL (8.3-10.6); Calcium (Corrected) 9.7 mg/dL (8.5-10.1); Carbon Dioxide 19.4 mMol/L (20.0-31.0); Chloride 108 mMol/L (98-107); Creatinine (Component) 0.7 mg/dL (0.6-1.3); Estimated Creatinine Clearance 100.7 mL/min (>60); Glucose 156 mg/dL (74-106); Osmolality,Calculated 280 (275-295); Phosphorous 2.1 mg/dL (2.4-5.1); Potassium 4.1 mMol/L (3.4-5.1); Sodium 140 mMol/L (136-145); eGFR > 60 See Note
[2024-12-08 04:01] LABS: Magnesium 1.5 mg/dL (1.6-2.6)
[2024-12-08] MEDS: DEXTROSE 5%-LACTATED RINGERS 1,000 ML 250 ML IV (04:20)
[2024-12-08] MEDS: Magnesium Sulfate 2 GM Ivpb 2 GM/50 ML BAG IV (04:57)
[2024-12-08 05:01] LABS: Lactate (Lactic Acid) 1.5 mMol/L (0.4-2.0)
[2024-12-08 05:02] LABS: Base Excess, Venous -5 (-3-3); O2 Saturation, Venous 89 % (96-97); PCO2, Venous 41 mmHg (36-56); PO2, Venous 55 mmHg (15-58); pH, Venous 7.32 (7.33-7.66)
[2024-12-08 05:04] LABS: Basophils # (Auto) 0.1 Thou/mm3 (0.0-0.2); Basophils % (Auto) 0 % (0-2.5); Eosinophils # (Auto) 0.0 Thou/mm3 (0.0-0.5); Eosinophils % (Auto) 0 % (0-10); Hematocrit 37.7 % (36.0-46.0); Hemoglobin 12.7 g/dL (12.0-16.0); Immature Granulocytes Auto 0.09 Thou/mm3 (0.00-0.00); Lymphocytes # (Auto) 4.0 Thou/mm3 (1.0-4.8); Lymphocytes % (Auto) 22 % (10-50); Mean Corpuscular HGB Conc 33.7 g/dl (31.0-37.0); Mean Corpuscular Hemoglobin 31.7 pg (25.0-35.0); Mean Corpuscular Volume 94 fL (80-100); Monocytes # (Auto) 1.6 Thou/mm3 (0.0-0.8); Monocytes % (Auto) 9 % (0-12); Neutrophils # (Auto) 12.5 Thou/mm3 (1.8-7.7); Neutrophils % (Auto) 68 % (37-80); Nucleated Red Blood Cell # 0.00 Thou/mm3 (0.00-0.00); Nucleated Red Blood Cell % 0 /100 WBC (0); Platelet Count 248 Thou/mm3 (140-440); RDW Standard Deviation 42.5 fL (36.4-46.3); Red Blood Count 4.01 Miln/mm3 (4.00-5.20); White Blood Count 18.3 Thou/mm3 (3.6-11.0)
[2024-12-08 05:05] LABS: Reflex Lactate? Y
[2024-12-08] MEDS: HEPARIN SOD INJ 5000 UNIT/ML VIAL SC ×3 (05:15→21:18)
[2024-12-08 05:23] LABS: Albumin, Serum 4.0 gm/dL (3.5-5.0); Anion Gap 12 (7-16); BUN/Creatinine Ratio 15 Ratio (12-20); Blood Urea Nitrogen 9 mg/dL (9-23); Calcium 9.4 mg/dL (8.3-10.6); Calcium (Corrected) 9.4 mg/dL (8.5-10.1); Carbon Dioxide 20.0 mMol/L (20.0-31.0); Cardiac Risk Estimate 2.3 RATIO (3.7-5.6); Chloride 109 mMol/L (98-107); Cholesterol 143 mg/dL (132-200); Creatinine (Component) 0.6 mg/dL (0.6-1.3); Estimated Creatinine Clearance 117.5 mL/min (>60); Glucose 161 mg/dL (74-106); HDL Cholesterol 61 mg/dL (40-60); LDL Cholesterol,Calculated 63 mg/dL (0-130); Magnesium 1.4 mg/dL (1.6-2.6); Osmolality,Calculated 282 (275-295); Phosphorous 2.3 mg/dL (2.4-5.1); Potassium 4.0 mMol/L (3.4-5.1); Sodium 141 mMol/L (136-145); Triglycerides 94 mg/dL (30-150); eGFR > 60 See Note
[2024-12-08] MEDS: INSULIN DEGLUDEC 5 UNIT/0.05 ML (PER 5 UNITS) 10 UNIT SC (06:17)
[2024-12-08] MEDS: INSULIN LISPRO (AdmeLOG) 1 UNIT/0.01 ML UNIT SC ×3 (08:31→17:05)
[2024-12-08] MEDS: INSULIN LISPRO (AdmeLOG) 1 UNIT/0.01 ML UNIT 2 UNIT SC ×2 (08:32→11:55)
[2024-12-08] MEDS: PANTOPRAZOLE 40 MG TABLET PO (08:35)
[2024-12-08] MEDS: LEVOTHYROXINE SODIUM 125 MCG, LEVOTHYROXINE SODIUM 25 MCG 150 MCG PO (08:36)
[2024-12-08] MEDS: RINGERS LACTATED 1000 ML 1,000 ML 999 ML IV (08:36)
--- NOTE | 2024-12-08 10:50 | ESPR_ITS ---
<Statement entered by Bret Robertson MD - 12/08/24 14:00> I supervised PGY 1 resident, Dr. Jones with management of patient. I agree with the documentation with the exceptions listed below. Patient is a 29-year-old female with past medical history of insulin-dependent diabetes mellitus presented to emergency department with chief complaints of nausea, vomiting, abdominal pain, and generalized weakness. ED course: On presentation patient was hemodynamically stable, vitals revealed mild tachycardia with heart rate of 117, CMP showed leukocytosis with left shift, WBC of 24.2, chemistry panel revealed bicarb of 32.1, anion gap of 20, glucose of 234,beta-hydroxybutyrate 0.9. A1c 6.6, corrected calcium of 10.5, ALP 137, albumin 5.2, VBG showed pH of 7.23, pCO2 28, O2 52, ICU team was contacted and patient was admitted to ICU for DKA treatment and management. Patient was administered 10 p.o. insulin degludec at 6:17 AM and insulin infusion was subsequently discontinued 2 hours after. Patient is now tolerating diet and is clinically stable for downgrade to the floor. Plan of care discussed with Attending Dr. Peterson Robertson MD PGY 2 Disclaimer: This note was dictated by speech recognition. Minor errors in supervisor partial denture department may be present due to voice recognition software. Documentation for date of: 12/08/24 Subjective Subjective Interval history: Patient is a 29-year-old female with past medical history of insulin-dependent diabetes mellitus presented to emergency department with chief complaints of nausea, vomiting, abdominal pain, and generalized weakness. Patient stated that she was diagnosed with diabetes in 2020, and for the last 1 year she was on insulin pump, followed by endocrinology in [place]. Patient states that she is not very much compliant with insulin pump as her skin gets irritated. Patient the not the best historian, she is not sure how much insulin she is taking at home, however stated that she has long-acting insulin and would use it whenever she is not using her insulin pump. She stated that she missed her insulin dose, and since yesterday were having diarrhea, nausea and vomiting. Otherwise patient denied any dysuria, chest pain, palpitation, any other associated symptoms. On presentation patient was hemodynamically stable, vitals revealed mild tachycardia with heart rate of 117, CMP showed leukocytosis with left shift, WBC of 24.2, chemistry panel revealed bicarb of 32.1, anion gap of 20, glucose of 234,beta-hydroxybutyrate 0.9. A1c 6.6, corrected calcium of 10.5, ALP 137, albumin 5.2, VBG showed pH of 7.23, pCO2 28, O2 52, ICU team was contacted and patient was admitted to ICU for DKA treatment and management. PMH as above PSH none Allergies NKDA Medications Pump and insulin pump Social history patient denies smoking, drinking or recreational drug use. Interval History 12/08/24: No overnight events. Patient was examined at bedside; she reports no new symptoms or complaints. Patient's anion gap of 20 has now closed at 12 and she can be downgraded to floors due to resolution of DKA status. Exam Vital Signs Temp Pulse Resp BP Pulse Ox O2 Del Method 98.2 F 114 H 14 120/85 H 100 Room Air 12/08/24 08:00 12/08/24 09:05 12/08/24 09:05 12/08/24 08:00 12/08/24 09:05 12/08/24 09:05 Narrative Exam GENERAL: no acute distress, AAO x3, well nourished. HEENT: Head AT/ NC. Mucous membranes dry. PERRL. NECK: Supple, no lymphadenopathy, no carotid bruits. CARDIOVASCULAR: RRR. Normal S1/S2, No m/r/g. No pitting edema of bilateral LEs. RESPIRATORY: CTAB. No wheezing, rhonchi, crackles. GASTROINTESTINAL: Abdomen soft, non tender no palpable masses. Bowel sounds present in all 4 quadrants. MUSCULOSKELETAL:? No cyanosis or edema, no visible joint swelling. NEUROLOGICAL: CN II-XII grossly intact. No focal deficits. Sensation intact, symmetric. PSYCHIATRIC: Awake and alert, not agitated, normal mood and affect. INTEGUMENTARY: No obvious rashes, no jaundice, normal turgor. Objective Labs 12/09/24 05:06 12/09/24 05:06 Labs: Laboratory Results - last 24 hr 12/07/24 12/07/24 12/07/24 18:21 18:30 20:58 WBC 24.2 H 22.5 H RBC 4.70 4.53 Hgb 14.9 14.7 Hct 46.5 H 43.7 MCV 99 97 MCH 31.7 32.5 MCHC 32.0 33.6 RDW Std Deviation 44.8 43.9 Plt Count 309 285 Neut % (Auto) 87 H 83 H Lymph % (Auto) 7 L 11 [place] % (Auto) 4 5 Eos % (Auto) 0 0 Baso % (Auto) 0 0 Neut # (Auto) 21.1 H 18.6 H Lymph # (Auto) 1.7 2.5 [place] # (Auto) 1.1 H 1.2 H Eos # (Auto) 0.0 0.0 Baso # (Auto) 0.1 0.1 Immature Gran # (Auto) 0.19 H 0.19 H Absolute Nucleated RBC 0.00 0.00 Immature Gran % 1 H 1 H Nucleated RBC % 0 0 Puncture Site ABG pH ABG pCO2 ABG pO2 ABG HCO3 ABG O2 Saturation ABG Base Excess VBG pH 7.23 L VBG pCO2 28 L VBG pO2 52 VBG O2 Sat (Tadeo) 86 L VBG Base Excess -14 L FiO2 Sodium 138 138 Potassium 4.4 4.7 Chloride 105 103 Carbon Dioxide 13.1 L* 15.0 L Anion Gap 20 H 20 H BUN 10 16 Creatinine 1.1 0.9 Estim Creat Clear Calc 64.1 78.3 eGFR > 60 > 60 BUN/Creatinine Ratio 9 L 18 Glucose [address] Glu mg/dL 143 H Hemoglobin A1c 6.6 H Calculated Osmolality 282 282 Lactic Acid Calcium 10.5 10.1 Corrected Calcium 10.5 H Phosphorus 3.3 Magnesium 1.8 Total Bilirubin 0.4 AST 20 ALT 19 Alkaline Phosphatase 137 H Total Protein 7.6 Albumin 5.2 H Globulin 2.4 Albumin/Globulin Ratio 2.2 Triglycerides Cholesterol LDL Cholesterol, Calc HDL Cholesterol Cholesterol/HDL Ratio Amylase 25 L Lipase 21 Beta-Hydroxybutyrate/Acetoacetate 2.9 H 4.6 H Free T4 1.63 Ur Collection Type Clean Catch Urine Color Lt-Yellow Urine Clarity Clear Urine pH 5.5 Ur Specific [place] 1.020 Urine Protein 1+ A Urine Glucose (UA) 4+ A Urine Ketones 4+ A Urine Blood 2+ A Urine Nitrite Negative Urine Bilirubin Negative Urine Urobilinogen (Auto) Negative Ur Leukocyte Esterase Negative Urine RBC 5 H Urine WBC 2 Ur Squamous Epith Cells 1 Urine Bacteria None Hyaline Casts 1 Ur Culture Indicated? Not Indicated Urine HCG, Qual Negative 12/07/24 12/07/24 12/08/24 21:15 21:16 01:53 WBC RBC Hgb Hct MCV MCH MCHC RDW Std Deviation Plt Count Neut % (Auto) Lymph % (Auto) [place] % (Auto) Eos % (Auto) Baso % (Auto) Neut # (Auto) Lymph # (Auto) [place] # (Auto) Eos # (Auto) Baso # (Auto) Immature Gran # (Auto) Absolute Nucleated RBC Immature Gran % Nucleated RBC % Puncture Site Right Radial ABG pH 7.25 L ABG pCO2 29 L ABG pO2 98 ABG HCO3 13 L ABG O2 Saturation 98 ABG Base Excess -13 L VBG pH 7.35 VBG pCO2 33 L VBG pO2 65 H VBG O2 Sat (Tadeo) 95 L VBG Base Excess -7 L FiO2 21 Sodium 140 Potassium 4.1 D Chloride 108 H Carbon Dioxide 19.4 L Anion Gap 13 BUN 7 L Creatinine 0.7 Estim Creat Clear Calc 100.7 eGFR > 60 BUN/Creatinine Ratio 10 L Glucose [address] Glu mg/dL 143 H Hemoglobin A1c 6.6 H Calculated Osmolality 280 Lactic Acid 2.3 H 2.2 H Calcium 9.7 Corrected Calcium 9.7 Phosphorus 2.1 L Magnesium 1.5 L Total Bilirubin AST ALT Alkaline Phosphatase Total Protein Albumin 4.5 D Globulin Albumin/Globulin Ratio Triglycerides Cholesterol LDL Cholesterol, Calc HDL Cholesterol Cholesterol/HDL Ratio Amylase Lipase Beta-Hydroxybutyrate/Acetoacetate Free T4 Ur Collection Type Urine Color Urine Clarity Urine pH Ur Specific [place] Urine Protein Urine Glucose (UA) Urine Ketones Urine Blood Urine Nitrite Urine Bilirubin Urine Urobilinogen (Auto) Ur Leukocyte Esterase Urine RBC Urine WBC Ur Squamous Epith Cells Urine Bacteria Hyaline Casts Ur Culture Indicated? Urine HCG, Qual 12/08/24 12/08/24 04:40 05:00 WBC 18.3 H RBC 4.01 Hgb 12.7 D Hct 37.7 MCV 94 MCH 31.7 MCHC 33.7 RDW Std Deviation 42.5 Plt Count 248 D Neut % (Auto) 68 Lymph % (Auto) 22 [place] % (Auto) 9 Eos % (Auto) 0 Baso % (Auto) 0 Neut # (Auto) 12.5 H Lymph # (Auto) 4.0 [place] # (Auto) 1.6 H Eos # (Auto) 0.0 Baso # (Auto) 0.1 Immature Gran # (Auto) 0.09 H Absolute Nucleated RBC 0.00 Immature Gran % 1 H Nucleated RBC % 0 Puncture Site ABG pH ABG pCO2 ABG pO2 ABG HCO3 ABG O2 Saturation ABG Base Excess VBG pH 7.32 L VBG pCO2 41 VBG pO2 55 VBG O2 Sat (Tadeo) 89 L VBG Base Excess -5 L FiO2 Sodium 141 Potassium 4.0 Chloride 109 H Carbon Dioxide 20.0 Anion Gap 12 BUN 9 Creatinine 0.6 Estim Creat Clear Calc 117.5 eGFR > 60 BUN/Creatinine Ratio [address]ucose [address] Glu mg/dL Hemoglobin A1c Calculated Osmolality 282 Lactic Acid 1.5 Calcium 9.4 Corrected Calcium 9.4 Phosphorus 2.3 L Magnesium 1.4 L Total Bilirubin AST ALT Alkaline Phosphatase Total Protein Albumin 4.0 D Globulin Albumin/Globulin Ratio Triglycerides 94 Cholesterol 143 LDL Cholesterol, Calc 63 HDL Cholesterol 61 H Cholesterol/HDL Ratio 2.3 L Amylase Lipase Beta-Hydroxybutyrate/Acetoacetate Free T4 Ur Collection Type Urine Color Urine Clarity Urine pH Ur Specific [place] Urine Protein Urine Glucose (UA) Urine Ketones Urine Blood Urine Nitrite Urine Bilirubin Urine Urobilinogen (Auto) Ur Leukocyte Esterase Urine RBC Urine WBC Ur Squamous Epith Cells Urine Bacteria Hyaline Casts Ur Culture Indicated? Urine HCG, Qual ABG Interpretation ABG results: 12/07/24 12/07/24 12/08/24 18:30 21:16 01:53 ABG pH 7.25 L ABG pCO2 29 L ABG pO2 98 ABG HCO3 13 L ABG O2 Saturation 98 ABG Base Excess -13 L VBG pH 7.23 L 7.35 VBG pCO2 28 L 33 L VBG pO2 52 65 H VBG Base Excess -14 L -7 L 12/08/24 05:00 ABG pH ABG pCO2 ABG pO2 ABG HCO3 ABG O2 Saturation ABG Base Excess VBG pH 7.32 L VBG pCO2 41 VBG pO2 55 VBG Base Excess -5 L Quality Measures Quality Measures none Assessment & Plan Assessment Current Active Medications: Generic Name Dose Route Start Last Admin Trade Name Freq PRN Reason Stop Dose Admin Acetaminophen 650 mg 12/07/24 20:46 Acetaminophen 325 Mg Tablet PO 01/06/25 20:45 Q6H PRN Fever >101.5 Dextrose 25 ml 12/07/24 20:49 Dextrose 50%-Water Inj 50 Ml Syringe IV [id number] PRN Blood Sugar - Low Dextrose 25 ml 12/08/24 06:00 Dextrose 50%-Water Inj 50 Ml Syringe IV 01/07/25 05:59 Q15MIN PRN BG 50-70 responsive npo pt Dextrose 50 ml 12/08/24 06:00 Dextrose 50%-Water Inj 50 Ml Syringe IV 01/07/25 05:59 Q15MIN PRN BG <50 OR BG <70 & pt unresponsive Glucagon 1 mg 12/08/24 06:00 Glucagon Inj 1 Mg Vial IM Q15MIN PRN BG <70, and no IV access Heparin Sodium (Porcine) 5,000 unit 12/07/24 22:00 12/08/24 05:15 Heparin Sod Inj 5000 Unit/Ml Vial SC 12/21/24 21:59 5,000 unit Q8HR BASSAM Administration Insulin Degludec 10 unit 12/08/24 06:00 12/08/24 06:17 Insulin Degludec 5 Unit/0.05 Ml (Per 5 Units) SC 01/07/25 05:59 10 unit QDAY BASSAM Administration Insulin Human Lispro 2 unit 12/08/24 07:30 12/08/24 08:32 Insulin Lispro (Admelog) 1 Unit/0.01 Ml Unit SC 01/07/25 07:29 2 unit AC BASSAM Administration Insulin Human Lispro 0 unit 12/08/24 07:30 12/08/24 08:31 Insulin Lispro (Admelog) 1 Unit/0.01 Ml Unit SC 01/07/25 07:29 1 unit AC BASSAM Administration Protocol Levothyroxine Sodium 125 mcg/ 150 mcg 12/08/24 08:15 12/08/24 08:36 Levothyroxine Sodium 25 mcg PO 01/07/25 08:14 150 mcg ACBR BASSAM Administration Ondansetron HCl 4 mg 12/07/24 20:46 Ondansetron Inj 2 Mg/Ml Inj 2 Ml IVP 01/06/25 20:45 Q6H PRN NAUSEA OR VOMITING Protocol Pantoprazole Sodium 40 mg 12/08/24 09:00 12/08/24 08:35 Pantoprazole 40 Mg Tablet PO 01/07/25 08:59 40 mg QDAY BASSAM Administration Plan Patient is a 29-year-old female with past medical history of insulin-dependent diabetes mellitus on insulin pump was admitted to ICU for DKA treatment and management Patient's anion gap of 20 has now closed at 12 and she can be downgraded to floors due to resolution of 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 Respiratory No active disease Patient is saturating on room air CVS Tachycardia (resolved) 2/2 dehydration in setting of DKA GI #Nausea, vomiting secondary to DKA (resolved) #Abdominal pain secondary to DKA (resolved) #Diarrhea (resolved) Renal #AGMA Secondary due to DKA (resolved) Anion gap of 20, VBG revealed pH of 7.23, beta hydroxybutyrate elevated Now resolved with anion gap of 12 Endo #DKA secondary to medication noncompliance (resolved) #DM type I Patient presents with chief complaints of nausea, vomiting, diarrhea and generalized weakness Patient states that yesterday her blood sugar was around 500 On presentation beta-hydroxybutyrate was elevated, anion gap of 20 Now resolved with anion gap of 12 ID No active disease Hematology #Leukocytosis Most likely reactive 2/2 DKA status Disposition: can be downgraded to floors due to resolution of DKA status DVT prophylaxis: heparin GI prophylaxis: PPI Diet: Carbohydrate Consistent Low Lines: PIV CODE STATUS:Full Code Patient care was discussed with attending physician, Dr. Winkler. Jamel Jones DO Internal Medicine, PGY-1 Attending Provider Attestation/Addendum Patient seen and examined with above resident, Jamel Jones DO. I agree with the findings, assessment, and plan of care as document except for any differences below. Patient admitted overnight with diabetic ketoacidosis due to medication noncompliance. No evidence of ischemic event or underlying infection as per precipitant. Leukocytosis is likely reactive and component of hemoconcentration. Patient with ability to transition back to subcutaneous insulin regimen this morning. Patient is doing well with no complications overnight. Will transfer to medicine for ongoing management prior to discharge, 24 hours. She is notably tolerating p.o. diet. Total critical care time: I personally spent 35 minutes for review of physiologic parameters, directing plan of care, coordination of care with other specialty, and counseling patient and her family at bedside. This is exclusive of time spent teaching of staff performing separate billable procedures.
--- NOTE | 2024-12-08 13:11 | ESPR_ITS ---
<Statement entered by Noah Morales MD - 12/14/24 07:13> I reviewed above note and agree with findings and plans. I have also personally examined the patient with medicine team and went over assessment and plan with medical team including computer science intern and resident physician. <Statement entered by Shaun Hernandez MD - 12/08/24 15:03> Patient examined and case discussed with the team including attending physician. Note reviewed, I agree with the care plan as documented. Please refer to the note below for further details. - Shaun Hernandez MD, PGY 3 Disclaimer: The document may contain phonetic/typographic errors due to voice recognition software. These errors are purely due to imperfections in the software program. Documentation for date of: 12/08/24 Subjective Subjective Interval history: 29-year-old female with past medical history of insulin-dependent diabetes mellitus presented to emergency department with chief complaints of nausea, vomiting, abdominal pain, and generalized weakness. Patient was admitted to the ICU for DKA and started on insulin drip and the DKA protocol. Post insulin drip, anion gap has resolved, patient has stabilized, denies nausea, vomiting and abdominal pain. Downgraded to the floors to be monitored on basal bolus insulin regiment. Patient seen at bedside today afternoon, patient is alert oriented and resting comfortably. Indonesian speaking mother present in the room. Patient claims she is back to her baseline and not sure what triggered this DKA event. Patient explained importance of appropriate blood glucose control and she demonstated understanding. Exam Vital Signs Temp Pulse Resp BP Pulse Ox O2 Del Method 98.8 F 102 H 22 H 103/66 99 Room Air 12/08/24 12:00 12/08/24 12:00 12/08/24 12:12/08/24 12:12/08/24 12:12/08/24 12:00 Narrative Exam General: Patient is fully alert and oriented. In no acute distress. Cardio: RRR, no mumurs, gallops or rubs appreciated. Resp: Normal lung sounds, no rales or wheezing auscultated. MSK/ Extremities: No muscle or joint pain on any movement. No bruising or skin changes visible. No presence of trace or pitting edema in lower extremities bilaterally, dorsalis pedis pulses +2 bilaterally GI: No abdominal distension, normal bowel sounds. No tender in any quadrants. Neuro: AAOx3, no focal motor or sensory deficits in the UE or LE bilat Psych: Good judgement, thought and behavior. Cooperative Objective Labs 12/08/24 04:40 12/08/24 04:40 Labs: Laboratory Results - last 24 hr 12/07/24 12/07/24 12/07/24 18:21 18:30 20:58 WBC 24.2 H 22.5 H RBC 4.70 4.53 Hgb 14.9 14.7 Hct 46.5 H 43.7 MCV 99 97 MCH 31.7 32.5 MCHC 32.0 33.6 RDW Std Deviation 44.8 43.9 Plt Count 309 285 Neut % (Auto) 87 H 83 H Lymph % (Auto) 7 L 11 Thayer % (Auto) 4 5 Eos % (Auto) 0 0 Baso % (Auto) 0 0 Neut # (Auto) 21.1 H 18.6 H Lymph # (Auto) 1.7 2.5 Thayer # (Auto) 1.1 H 1.2 H Eos # (Auto) 0.0 0.0 Baso # (Auto) 0.1 0.1 Immature Gran # (Auto) 0.19 H 0.19 H Absolute Nucleated RBC 0.00 0.00 Immature Gran % 1 H 1 H Nucleated RBC % 0 0 Puncture Site ABG pH ABG pCO2 ABG pO2 ABG HCO3 ABG O2 Saturation ABG Base Excess VBG pH 7.23 L VBG pCO2 28 L VBG pO2 52 VBG O2 Sat (Tadeo) 86 L VBG Base Excess -14 L FiO2 Sodium 138 138 Potassium 4.4 4.7 Chloride 105 103 Carbon Dioxide 13.1 L* 15.0 L Anion Gap 20 H 20 H BUN 10 16 Creatinine 1.1 0.9 Estim Creat Clear Calc 64.1 78.3 eGFR > 60 > 60 BUN/Creatinine Ratio 9 L 18 Glucose [address] Glu mg/dL 143 H Hemoglobin A1c 6.6 H Calculated Osmolality 282 282 Lactic Acid Calcium 10.5 10.1 Corrected Calcium 10.5 H Phosphorus 3.3 Magnesium 1.8 Total Bilirubin 0.4 AST 20 ALT 19 Alkaline Phosphatase 137 H Total Protein 7.6 Albumin 5.2 H Globulin 2.4 Albumin/Globulin Ratio 2.2 Triglycerides Cholesterol LDL Cholesterol, Calc HDL Cholesterol Cholesterol/HDL Ratio Amylase 25 L Lipase 21 Beta-Hydroxybutyrate/Acetoacetate 2.9 H 4.6 H Free T4 1.63 Ur Collection Type Clean Catch Urine Color Lt-Yellow Urine Clarity Clear Urine pH 5.5 Ur Specific [place] 1.020 Urine Protein 1+ A Urine Glucose (UA) 4+ A Urine Ketones 4+ A Urine Blood 2+ A Urine Nitrite Negative Urine Bilirubin Negative Urine Urobilinogen (Auto) Negative Ur Leukocyte Esterase Negative Urine RBC 5 H Urine WBC 2 Ur Squamous Epith Cells 1 Urine Bacteria None Hyaline Casts 1 Ur Culture Indicated? Not Indicated Urine HCG, Qual Negative 12/07/24 12/07/24 12/08/24 21:15 21:16 01:53 WBC RBC Hgb Hct MCV MCH MCHC RDW Std Deviation Plt Count Neut % (Auto) Lymph % (Auto) [place] % (Auto) Eos % (Auto) Baso % (Auto) Neut # (Auto) Lymph # (Auto) [place]ayer # (Auto) Eos # (Auto) Baso # (Auto) Immature Gran # (Auto) Absolute Nucleated RBC Immature Gran % Nucleated RBC % Puncture Site Right Radial ABG pH 7.25 L ABG pCO2 29 L ABG pO2 98 ABG HCO3 13 L ABG O2 Saturation 98 ABG Base Excess -13 L VBG pH 7.35 VBG pCO2 33 L VBG pO2 65 H VBG O2 Sat (Tadeo) 95 L VBG Base Excess -7 L FiO2 21 Sodium 140 Potassium 4.1 D Chloride 108 H Carbon Dioxide 19.4 L Anion Gap 13 BUN 7 L Creatinine 0.7 Estim Creat Clear Calc 100.7 eGFR > 60 BUN/Creatinine Ratio 10 L Glucose [address] Glu mg/dL 143 H Hemoglobin A1c 6.6 H Calculated Osmolality 280 Lactic Acid 2.3 H 2.2 H Calcium 9.7 Corrected Calcium 9.7 Phosphorus 2.1 L Magnesium 1.5 L Total Bilirubin AST ALT Alkaline Phosphatase Total Protein Albumin 4.5 D Globulin Albumin/Globulin Ratio Triglycerides Cholesterol LDL Cholesterol, Calc HDL Cholesterol Cholesterol/HDL Ratio Amylase Lipase Beta-Hydroxybutyrate/Acetoacetate Free T4 Ur Collection Type Urine Color Urine Clarity Urine pH Ur Specific [place] Urine Protein Urine Glucose (UA) Urine Ketones Urine Blood Urine Nitrite Urine Bilirubin Urine Urobilinogen (Auto) Ur Leukocyte Esterase Urine RBC Urine WBC Ur Squamous Epith Cells Urine Bacteria Hyaline Casts Ur Culture Indicated? Urine HCG, Qual 12/08/24 12/08/24 04:40 05:00 WBC 18.3 H RBC 4.01 Hgb 12.7 D Hct 37.7 MCV 94 MCH 31.7 MCHC 33.7 RDW Std Deviation 42.5 Plt Count 248 D Neut % (Auto) 68 Lymph % (Auto) 22 Thayer % (Auto) 9 Eos % (Auto) 0 Baso % (Auto) 0 Neut # (Auto) 12.5 H Lymph # (Auto) 4.0 [place]ayer # (Auto) 1.6 H Eos # (Auto) 0.0 Baso # (Auto) 0.1 Immature Gran # (Auto) 0.09 H Absolute Nucleated RBC 0.00 Immature Gran % 1 H Nucleated RBC % 0 Puncture Site ABG pH ABG pCO2 ABG pO2 ABG HCO3 ABG O2 Saturation ABG Base Excess VBG pH 7.32 L VBG pCO2 41 VBG pO2 55 VBG O2 Sat (Tadeo) 89 L VBG Base Excess -5 L FiO2 Sodium 141 Potassium 4.0 Chloride 109 H Carbon Dioxide 20.0 Anion Gap 12 BUN 9 Creatinine 0.6 Estim Creat Clear Calc 117.5 eGFR > 60 BUN/Creatinine Ratio [address]ucose [address] Glu mg/dL Hemoglobin A1c Calculated Osmolality 282 Lactic Acid 1.5 Calcium 9.4 Corrected Calcium 9.4 Phosphorus 2.3 L Magnesium 1.4 L Total Bilirubin AST ALT Alkaline Phosphatase Total Protein Albumin 4.0 D Globulin Albumin/Globulin Ratio Triglycerides 94 Cholesterol 143 LDL Cholesterol, Calc 63 HDL Cholesterol 61 H Cholesterol/HDL Ratio 2.3 L Amylase Lipase Beta-Hydroxybutyrate/Acetoacetate Free T4 Ur Collection Type Urine Color Urine Clarity Urine pH Ur Specific [place] Urine Protein Urine Glucose (UA) Urine Ketones Urine Blood Urine Nitrite Urine Bilirubin Urine Urobilinogen (Auto) Ur Leukocyte Esterase Urine RBC Urine WBC Ur Squamous Epith Cells Urine Bacteria Hyaline Casts Ur Culture Indicated? Urine HCG, Qual ABG Interpretation ABG results: 12/07/24 12/07/24 12/08/24 18:30 21:16 01:53 ABG pH 7.25 L ABG pCO2 29 L ABG pO2 98 ABG HCO3 13 L ABG O2 Saturation 98 ABG Base Excess -13 L VBG pH 7.23 L 7.35 VBG pCO2 28 L 33 L VBG pO2 52 65 H VBG Base Excess -14 L -7 L 12/08/24 05:00 ABG pH ABG pCO2 ABG pO2 ABG HCO3 ABG O2 Saturation ABG Base Excess VBG pH 7.32 L VBG pCO2 41 VBG pO2 55 VBG Base Excess -5 L Quality Measures Quality Measures none Assessment & Plan Assessment Current Active Medications: Generic Name Dose Route Start Last Admin Trade Name Oleg PRN Reason Stop Dose Admin Acetaminophen 650 mg 12/07/24 20:46 Acetaminophen 325 Mg Tablet PO 01/06/25 20:45 Q6H PRN Fever >101.5 Dextrose 25 ml 12/07/24 20:49 Dextrose 50%-Water Inj 50 Ml Syringe IV [id number] PRN Blood Sugar - Low Dextrose 25 ml 12/08/24 06:00 Dextrose 50%-Water Inj 50 Ml Syringe IV 01/07/25 05:59 Q15MIN PRN BG 50-70 responsive npo pt Dextrose 50 ml 12/08/24 06:00 Dextrose 50%-Water Inj 50 Ml Syringe IV 01/07/25 05:59 Q15MIN PRN BG <50 OR BG <70 & pt unresponsive Glucagon 1 mg 12/08/24 06:00 Glucagon Inj 1 Mg Vial IM Q15MIN PRN BG <70, and no IV access Heparin Sodium (Porcine) 5,000 unit 12/07/24 22:00 12/08/24 05:15 Heparin Sod Inj 5000 Unit/Ml Vial SC 12/21/24 21:59 5,000 unit Q8HR BASSAM Administration Insulin Degludec 10 unit 12/08/24 06:00 12/08/24 06:17 Insulin Degludec 5 Unit/0.05 Ml (Per 5 Units) SC 01/07/25 05:59 10 unit QDAY BASSAM Administration Insulin Human Lispro 2 unit 12/08/24 07:30 12/08/24 11:55 Insulin Lispro (Admelog) 1 Unit/0.01 Ml Unit SC 01/07/25 07:29 2 unit AC BASSAM Administration Insulin Human Lispro 0 unit 12/08/24 07:30 12/08/24 11:56 Insulin Lispro (Admelog) 1 Unit/0.01 Ml Unit SC 01/07/25 07:29 1 unit AC BASSAM Administration Protocol Levothyroxine Sodium 125 mcg/ 150 mcg 12/08/24 08:15 12/08/24 08:36 Levothyroxine Sodium 25 mcg PO 01/07/25 08:14 150 mcg ACBR BASSAM Administration Ondansetron HCl 4 mg 12/07/24 20:46 Ondansetron Inj 2 Mg/Ml Inj 2 Ml IVP 01/06/25 20:45 Q6H PRN NAUSEA OR VOMITING Protocol Pantoprazole Sodium 40 mg 12/08/24 09:00 12/08/24 08:35 Pantoprazole 40 Mg Tablet PO 01/07/25 08:59 40 mg QDAY BASSAM Administration Plan 29-year-old female with past medical history of insulin-dependent diabetes mellitus, admission day 2 for DKA management. #DKA secondary to medication noncompliance - resolved #DM type I #AGMA - resolved Patient presents with chief complaints of nausea, vomiting, diarrhea and generalized weakness Patient states that yesterday her blood sugar was around 500 On presentation beta-hydroxybutyrate was elevated, anion gap of 20, -Was admitted to ICU for close monitoring -Started on DKA protocol -Close monitor glucose/renal panel -Anion gap closed, patient started on diet -Pain/nausea management as needed -Patient downgraded to floors - Continuing with a basal bolus regiment and sliding scale insulin for breakthrough hyperglycemia. 15 units Degludec QHS, and 3 units TID with meals. Health Maintenance: Code Status: Full DVT Prophylaxis: SCDs GI Prophylaxis: Protonix Diet: Carb consistent low Weeks: None Lines: PIV Supplemental O2: None Disposition: Observation post DKA protocol, likely discharge tomorrow. Patient seen and care discussed with my attending physician, Dr. Morales and my senior residents, Dr. Hernandez and Dr. José Cramer, OMS-IV
[2024-12-08] MEDS: INSULIN LISPRO (AdmeLOG) 1 UNIT/0.01 ML UNIT 3 UNIT SC (17:06)
[2024-12-08] MEDS: INSULIN DEGLUDEC 5 UNIT/0.05 ML (PER 5 UNITS) SC (21:17)
[2024-12-09] VITALS: BP 131/72; PULSE 103; RESP 16; TEMP 36.4; O2SAT 99
[2024-12-09 04:00] VITALS: BP 120/81; PULSE 100; PULSE 101; RESP 16; TEMP 36.1; O2SAT 99
[2024-12-09] MEDS: LEVOTHYROXINE SODIUM 125 MCG, LEVOTHYROXINE SODIUM 25 MCG 150 MCG PO (05:30)
[2024-12-09] MEDS: HEPARIN SOD INJ 5000 UNIT/ML VIAL SC (05:31)
[2024-12-09 05:40] LABS: Basophils # (Auto) 0.1 Thou/mm3 (0.0-0.2); Basophils % (Auto) 1 % (0-2.5); Eosinophils # (Auto) 0.2 Thou/mm3 (0.0-0.5); Eosinophils % (Auto) 2 % (0-10); Hematocrit 38.0 % (36.0-46.0); Hemoglobin 12.7 g/dL (12.0-16.0); Immature Granulocytes Auto 0.04 Thou/mm3 (0.00-0.00); Lymphocytes # (Auto) 3.3 Thou/mm3 (1.0-4.8); Lymphocytes % (Auto) 31 % (10-50); Mean Corpuscular HGB Conc 33.4 g/dl (31.0-37.0); Mean Corpuscular Hemoglobin 31.7 pg (25.0-35.0); Mean Corpuscular Volume 95 fL (80-100); Monocytes # (Auto) 0.8 Thou/mm3 (0.0-0.8); Monocytes % (Auto) 8 % (0-12); Neutrophils # (Auto) 6.3 Thou/mm3 (1.8-7.7); Neutrophils % (Auto) 58 % (37-80); Nucleated Red Blood Cell # 0.00 Thou/mm3 (0.00-0.00); Nucleated Red Blood Cell % 0 /100 WBC (0); Platelet Count 192 Thou/mm3 (140-440); RDW Standard Deviation 43.6 fL (36.4-46.3); Red Blood Count 4.01 Miln/mm3 (4.00-5.20); White Blood Count 10.9 Thou/mm3 (3.6-11.0)
[2024-12-09 05:51] LABS: Magnesium 1.7 mg/dL (1.6-2.6); Phosphorous 3.1 mg/dL (2.4-5.1)
[2024-12-09 06:00] VITALS: BMI 33.3
[2024-12-09 06:55] VITALS: PULSE 95; RESP 16; RESP 99
[2024-12-09] MEDS: INSULIN LISPRO (AdmeLOG) 1 UNIT/0.01 ML UNIT 3 UNIT SC (07:45)
[2024-12-09] MEDS: INSULIN LISPRO (AdmeLOG) 1 UNIT/0.01 ML UNIT SC ×2 (07:45→11:30)
[2024-12-09 08:00] VITALS: BP 133/82; PULSE 103; RESP 18; TEMP 36.2; O2SAT 100
[2024-12-09 08:33] LABS: Alanine Aminotransferase 17 U/L (10-49); Albumin, Serum 3.8 gm/dL (3.5-5.0); Albumin/Globulin Ratio 2.4 (1.2-2.2); Anion Gap 10 (7-16); Aspartate Amino Transferase 22 U/L (0-34); BUN/Creatinine Ratio 17 Ratio (12-20); Bilirubin,Total 0.4 mg/dL (0.3-1.2); Blood Urea Nitrogen 10 mg/dL (9-23); Calcium 9.0 mg/dL (8.3-10.6); Calcium (Corrected) 9.2 mg/dL (8.5-10.1); Carbon Dioxide 29.0 mMol/L (20.0-31.0); Chloride 105 mMol/L (98-107); Creatinine (Component) 0.6 mg/dL (0.6-1.3); Estimated Creatinine Clearance 115.6 mL/min (>60); Globulin 1.6 gm/dL (2.3-3.5); Glucose 172 mg/dL (74-106); Osmolality,Calculated 289 (275-295); Potassium 4.1 mMol/L (3.4-5.1); Sodium 144 mMol/L (136-145); Total Protein 5.4 gm/dL (5.7-8.2); eGFR > 60 See Note
[2024-12-09 08:35] LABS: Alkaline Phosphatase 95 U/L (46-116)
[2024-12-09] MEDS: PANTOPRAZOLE 40 MG TABLET PO (08:55)
[2024-12-09 09:29] VITALS: PULSE 105
--- NOTE | 2024-12-09 10:31 | ESDS_ITS ---
<Statement entered by Noah Morales MD - 12/14/24 07:14> I reviewed above note and agree with findings and plans. I have also personally examined the patient with medicine team and went over assessment and plan with medical team including media relations intern and resident physician. <Statement entered by Momo Isaac MD - 12/09/24 16:44> Note reviewed and agree with care plan as documented. Please refer to the note below for further details. Plan discussed with attending physician Dr. Carmen Isaac MD PGY-2 Internal Medicine Planned Discharge Date 12/09/24 DS: Providers Provider Date of admission: 12/07/24 20:46 Primary care physician: Bear Izquierdo MD Admitting Provider: Debora Lomas MD Attending Provider on Admission: Debora Lomas MD Consults: 12/07/24 20:49 Referral Registered Dietitian Routine Comment: Attending Provider on DC: Alfonso Abrams Discharging Provider: Alfonso Abrams DS: Diagnosis Problem List Completed Was Problem List Reviewed/Reconciled?: Yes Hospital Course Hospital Course Hospital course: Danna Pepper with past medical history of type 1 diabetes mellitus was admitted at [facility] on 12/07/24 for DKA. In the ED patient was found to have nausea/vomiting, elevated blood glucose at 234, anion gap of 20 with only remarkable vital sign of tachcardia (HR of 117). Patient was admitted to ICU to start on insulin drip and DKA protocol. On 12/08/24 patient's symptoms improved, anion gap resolved, and patient was downgraded to the floors. Blood glucose was managed with Degludec and Lispro basal (15 units) bolus (5 units) regiment along with a sliding scale. Patient to be discharged on 12/09/24 and to be followed by PCP/hospital administrator within 1 week of discharge. Problem list #DKA secondary to medication noncompliance #DM type I #AGMA #Nausea, vomiting secondary to DKA #Abdominal pain secondary to DKA #Diarrhea #Leukocytosis Discharge Instructions ? Continue taking all other home medications as prescribed. - Make sure to take both long and short acting insulin and check daily glucose levels three times a day ? Follow-up with Primary Care Provider within 1-2 weeks of discharge - Follow-up with your hospital administrator within 1-2 weeks of discharge ? If you do not have a Primary Care Provider, you can follow-up at the [facility] (you can call [phone] to make an appointment) ? Return to ED if symptoms worsen or reocur Time Spent with Patient Time attestation: Total time spent providing and/or coordinating discharge services: Time spent: Greater than 30 minutes Exam Vital Signs Temp Pulse Resp BP Pulse Ox O2 Del Method 97.1 F 105 H 18 133/82 H 100 Room Air 12/09/24 08:00 12/09/24 09:29 12/09/24 08:00 12/09/24 08:00 12/09/24 08:00 12/09/24 08:00 Narrative Exam General: Patient is fully alert and oriented. In no acute distress. Cardio: RRR, no mumurs, gallops or rubs appreciated. Resp: Normal lung sounds, no rales or wheezing auscultated. MSK/ Extremities: No muscle or joint pain on any movement. No bruising or skin changes visible. No presence of trace or pitting edema in lower extremities bilaterally, dorsalis pedis pulses +2 bilaterally GI: No abdominal distension, normal bowel sounds. No abdominal tenderness in any quadrants. Neuro: AAOx3, no focal motor or sensory deficits in the UE or LE bilat Psych: Good judgement, thought and behavior. Cooperative Discharge Plan Plan Patient Disposition: HOME (Self Care) Care Plan Goals: ? Continue taking all other home medications as prescribed ? Follow-up with Primary Care Provider within 1-2 weeks of discharge ? If you do not have a Primary Care Provider, you can follow-up at the [facility] (you can call [phone] to make an appointment) ? Return to ED if symptoms worsen or recur Prescriptions/Referrals Prescriptions/Med Rec: Continued levothyroxine 150 mcg tablet 150 mcg PO DAILY Patient Comments: TAKE 1 TABLET BY MOUTH DAILY BEFORE BREAKFAST (DME) Dexcom G6 Sensor Device Patient Comments: CHANGE SENSOR EVERY 10 DAYS (DME) Dexcom G6 Transmitter Device Patient Comments: 1 TRANSMITTER EVERY 3 MONTHS. GOES ALONG WITH DEXCOM SENSORS AND CUSTOMER ACCOUNT EXECUTIVE. (DME) Omnipod 5 G6-G7 Pods (Gen 5) Cartridge SUBCUT Patient Comments: CHANGE POD EVERY 72 HOURS insulin glargine [Basaglar KwikPen U-100 Insulin] 100 unit/mL (3 mL) insulin pen 13 unit SUBCUT DAILY Patient Comments: INJECT 13 UNITS SUBCUTANEOUSLY EVERY DAY insulin lispro [Admelog SoloStar U-100 Insulin] 100 unit/mL insulin pen 1 sliding scale dose SUBCUT AC Patient Comments: INJECT 14 UNITS SUBCUTANEOUSLY 3 TIMES A DAY BEFORE MEALS norgestimate-ethinyl estradiol [Radha] 0.25-0.035 mg tablet 1 tab PO DAILY Patient Comments: TAKE 1 TABLET BY MOUTH EVERY DAY FOR 28 DAYS Otezla 30 mg tablet 30 mg PO PRN PRN (Reason: breakout) Discontinued Levothyroxine * (SYNTHROID *) 88 MCG tablet 88 mcg PO QDAY Qty: 0 Patient Comments: TAKE 1/2 TABLE BY MOUTH ONCE A DAY Referrals: Bear Izquierdo MD [Primary Care Provider, Family Practice] Patient/Caregiver Discharge Instructions Education Materials: Diabetic Ketoacidosis Print Language: Armenian Stand Alone Forms: Mary Award Info., Patient Portal Info Letter Discharge Order Discharge Orders: Discharge (Routine); Ordered 12/09/24 Ordered By: Momo Isaac Quality Discharge Quality Measures VTE prophylaxis
[2024-12-09] MEDS: INSULIN LISPRO (AdmeLOG) 1 UNIT/0.01 ML UNIT 5 UNIT SC (11:29)
[2024-12-09 12:00] VITALS: BP 139/95; PULSE 93; RESP 16; TEMP 36.5; O2SAT 100
== END 2024-12-09 12:35 | disposition home or self-care (01) | DRG 420 ==
LOC: SERX 20:21 → SERHOLD 21:07 → S2SX 22:58 → S3NX 12-08 17:19
PROVIDERS: Nurse Practitioner Primary Care; Student in an Organized Health Care Education/Training Program; Admitting Provider Student in an Organized Health Care Education/Training Program; Emergency Provider Emergency Medicine; PCP Family Medicine; Visit Provider Student in an Organized Health Care Education/Training Program
DX: E10.10 Type 1 diabetes mellitus with ketoacidosis without coma (principal); D72.829 Elevated white blood cell count, unspecified; R00.0 Tachycardia, unspecified; Z91.148 Patient's other noncompliance with medication regimen for other reason; Z79.890 Hormone replacement therapy; Z96.41 Presence of insulin pump (external) (internal)
CPT/HCPCS: 36415; 36600; 71045; 71046; 80048; 80053; 80061; 80069; 81001; 81025; 82010; 82150; 82803; 83036; 83605; 83690; 83735; 84100; 84439; 85025; 87040; 87081; 87400; 87811; 93225; 96361; 96372; 96374; 99284; J1644; J1815; J2405; J3475; J3480; J7030; J7120; J7121; A9270